=== PATIENT | female | born 1990 | race Caucasian/White ===

== ENCOUNTER 2020-04-21 18:05 | Inpatient (IN) | payer MEDICAID, SELFPAY ==
[~2020-04-21] VITALS: Ht 167.6 cm; Wt 126.6 kg
[2020-04-21 18:20] VITALS: BP 152/79
--- NOTE | 2020-04-21 18:23 | NUR ---
TO LOBBY A/W BED AMBULATORY
--- NOTE | 2020-04-21 19:30 | NUR ---
SEEN AND EXAMINED BY PA WITH ORDERS AND CARRIED OUT
[2020-04-21] MEDS ORDERED: DICYCLOMINE HCL LIQUID 20 MG, ALUMINUM HYD/MAG/SIMETHICONE 30 ML, LIDOCAINE VISCOUS 2% ... PO ONE ×3 (19:35)
[2020-04-21] MEDS ORDERED: KETOROLAC 30 MG/ML VIAL IM ONE (19:35)
[2020-04-21] MEDS ORDERED: DICYCLOMINE HCL LIQUID 10 MG/5 ML UDC ONE (20:11)
[2020-04-21] MEDS ORDERED: LIDOCAINE VISCOUS 2% 20 ML UDC ONE (20:11)
[2020-04-21] MEDS ORDERED: ALUMINUM HYD/MAG/SIMETHICONE 30 ML UDC ONE (20:11)
[2020-04-21 20:13] LABS: BASOPHILS # (AUTO) 0.1 K/uL (0.00-0.22); BASOPHILS % (AUTO) 0.5 % (0.0-2.0); EOSINOPHILS # (AUTO) 0.1 K/uL (0-0.4); EOSINOPHILS % (AUTO) 0.6 % (0.0-4.0); HEMOGLOBIN 14.2 g/dL (12.0-16.0); LYMPHOCYTES # (AUTO) 1.9 K/uL (2.5-16.5); LYMPHOCYTES % (AUTO) 13.4 % (20.5-51.1); MEAN CORPUSCULAR HEMOGLOBIN 29 pg (27-31); MEAN CORPUSCULAR HGB CONC 33 g/dL (33-37); MEAN CORPUSCULAR VOLUME 87.1 fL (80-94); MONOCYTES # (AUTO) 1.1 K/uL (0.8-1.0); MONOCYTES % (AUTO) 7.6 % (1.7-9.3); NEUTROPHILS % (AUTO) 77.9 % (42.2-75.2); PLATELET COUNT (AUTO) 316 K/uL (140-450); RED BLOOD CELL COUNT(AUTO) 4.94 MIL/uL (4.20-5.40); RED CELL DISTRIBUTION WIDTH 14.8 % (11.6-13.7); WHITE BLOOD COUNT (AUTO) 14.1 K/uL (4.8-10.8)
--- NOTE | 2020-04-21 20:20 | NUR ---
MEDICATED PER ERMDS ORDER, TOLERATED WELL.
[2020-04-21 20:30] LABS: ALBUMIN 3.8 g/dL (3.4-5.0); ANION GAP 11.7 (8-16); CREATININE 0.8 mg/dL (0.6-1.3); POTASSIUM 3.7 mmol/L (3.5-5.1); TOTAL BILIRUBIN 0.7 mg/dL (0.0-1.0)
[2020-04-21 21:48] LABS: APPEARANCE,URINE CLEAR (CLEAR); BILIRUBIN,URINE NEGATIVE (NEGATIVE); BLOOD, URINE NEGATIVE (NEGATIVE); COLOR,URINE YELLOW (YELLOW); LEUKOCYTE ESTERASE ,URINE NEGATIVE (NEGATIVE); NITRITE, URINE NEGATIVE (NEGATIVE); PH,URINE 5.5 (5.0-9.0); UGLUCOSE NEGATIVE (NEGATIVE)
[2020-04-21] MEDS ORDERED: PIPERACILLIN/TAZOBACTAM 3.375 GM in DEXTROSE 5% 50 ML IV ONE (22:15)
--- NOTE | 2020-04-22 01:00 | NUR ---
ALL RESULTS BACK AND NOTED BY ERMD AND FOR ADMISSION.
--- NOTE | 2020-04-22 01:09 | NUR ---
Patient will be admitted to care of DR CAYDEN FOREMAN. Admited to MS.DIAGNOSIS PANCREATITIS, CHOLECYSTITIS, CHOLEDUCOLITHIASIS.NO AVAILABLE ROOM OF NOW.
[2020-04-22] MEDS ORDERED: PIPERACILLIN/TAZOBACTAM 3.375 GM VIAL IV ONE ×4 (03:16→21:29)
[2020-04-22] MEDS ORDERED: DEXTROSE 5% 1,000 ML IV SCH (07:45)
[2020-04-22] MEDS: MORPHINE SULFATE 2 MG/ML SYR IVP PRN ×2 (08:14→21:38)
[2020-04-22] MEDS ORDERED: ONDANSETRON 4 MG/2 ML VIAL IM/IVP PRN (08:55)
[2020-04-22] MEDS ORDERED: DOCUSATE SODIUM 100 MG GELCAP PO PRN (08:55)
[2020-04-22] MEDS ORDERED: NACL 0.9% 1,000 ML IV SCH (08:55)
[2020-04-22] MEDS ORDERED: POTASSIUM CHLORIDE 10 MEQ TABER PO PRN (08:55)
[2020-04-22] MEDS ORDERED: guaiFENesin DM 200/20 MG-10 ML 10 ML UDC PO PRN (08:55)
[2020-04-22] MEDS ORDERED: ZOLPIDEM 5 MG TAB PO PRN (08:55)
[2020-04-22] MEDS ORDERED: ACETAMINOPHEN 325 MG TAB PO PRN (08:55)
--- NOTE | 2020-04-22 09:13 | NUR ---
PATIENT HAS BEEN SCREENED AND CATEGORIZED LOW NUTRITION RISK. PATIENT WILL BE SEEN WITHIN 7 DAYS OF ADMISSION. 04/28/[address]
[2020-04-22] MEDS: PANTOPRAZOLE 40 MG TABEC PO SCH (09:47)
[2020-04-22 10:36] LABS: BASOPHILS # (AUTO) 0.1 K/uL (0.00-0.22); BASOPHILS % (AUTO) 0.5 % (0.0-2.0); EOSINOPHILS # (AUTO) 0.1 K/uL (0-0.4); EOSINOPHILS % (AUTO) 0.4 % (0.0-4.0); HEMATOCRIT 41.6 % (36-48); HEMOGLOBIN 13.7 g/dL (12.0-16.0); LYMPHOCYTES # (AUTO) 1.4 K/uL (2.5-16.5); LYMPHOCYTES % (AUTO) 10.3 % (20.5-51.1); MEAN CORPUSCULAR HEMOGLOBIN 29 pg (27-31); MEAN CORPUSCULAR HGB CONC 33 g/dL (33-37); MEAN CORPUSCULAR VOLUME 86.8 fL (80-94); MONOCYTES # (AUTO) 1.1 K/uL (0.8-1.0); MONOCYTES % (AUTO) 7.7 % (1.7-9.3); NEUTROPHILS # (AUTO) 11.3 K/uL (1.8-7.7); NEUTROPHILS % (AUTO) 81.1 % (42.2-75.2); PLATELET COUNT (AUTO) 292 K/uL (140-450); RED CELL DISTRIBUTION WIDTH 14.8 % (11.6-13.7)
[2020-04-22 11:22] LABS: PROTHROMBIN TIME 9.7 secs (10.8-13.4)
--- NOTE | 2020-04-22 11:28 | NUR ---
SOCIAL WORK NOTE: Patient's Orientation Unable To Assess Information Provided By CHERRY KEITH - MOTHER Comments SW WAS UNABLE TO MEET PATIENT AT BEDSIDE. SW COMPLETED ASSESSMENT WITH PATIENT'S MOTHER. Logistics Tech, Realtionship and Phone Number CHERRY KELLEY [phone] Healthcare Power of Supervisor Cell Operation No Does Patient Have a POLST No Identifying Problems No Social Work Triggers Is A Social Work Consult Needed No Mandate Report Filed No Explanation Of Identifying Problems PATIENT IS A 30-YEAR-OLD FEMALE ADMITTED FOR PANCREATITIS. PATIENT HAS NO REPORTED PMHX. PATIENT'S MOTHER REPORTED NO HISTORY OF SUBSTANCE ABUSE OR MENTAL HEALTH. Admitted From Home Pre-Admission Level Of Functioning Status Independent/Ambulatory Prior Resources/Services Used In Last 12 Months No Prior Resources Used Prior DME No Prior DME Used Dialysis Comments N/A Living Situation Apartment Lives With Family Patient Had Caregiver No Home Support No Caregiver Issues Financial Issues No Known Financial Issue Referral To The Financial Counselor Needed No Factors/Needs No D/C Needs Identified Pt/Rep Participated In Discharge Plan Yes Patient/Family Agress With Discharge Plan Yes Discharge Plan Comments TENTATIVE DISCHARGE PLAN IS FOR PATIENT TO RETURN HOME. DC Plan Status Initiated
[2020-04-22 12:48] LABS: ANION GAP 13.6 (8-16); POTASSIUM 3.6 mmol/L (3.5-5.1)
[2020-04-22 12:51] LABS: CHOL/HDL RATIO 2.7 (1-4.5); FREE T4 (FREE THYROXINE) 1.46 ng/dL (0.76-1.46); MAGNESIUM 2.6 mg/dL (1.8-2.4); PHOSPHORUS 3.2 mg/dL (2.5-4.9); THYROID STIMULATING HORMONE 2.8 uIU/mL (0.34-3.74)
[2020-04-22] MEDS: PIPERACILLIN/TAZOBACTAM 3.375 GM in DEXTROSE 5% 50 ML IV SCH ×2 (13:38→21:32)
--- NOTE | 2020-04-22 16:54 | NUR ---
PT taken to Operating Room. report given to Rossy BARRERA.
[2020-04-22] MEDS ORDERED: BUPIVACAINE-MPF/EPI 0.25% 10 ML VIAL INJ ONE (17:12)
[2020-04-22] MEDS ORDERED: HYDROmorphone 1 MG/ML AMP IVP PRN ×2 (18:15→18:35)
[2020-04-22] MEDS ORDERED: ONDANSETRON 4 MG/2 ML VIAL IVP PRN (18:15)
[2020-04-22] MEDS ORDERED: diphenhydrAMINE 50 MG/ML VIAL IVP PRN (18:15)
[2020-04-22] MEDS ORDERED: HYDROcodone/APAP 5/325 MG 1 TAB TAB PO PRN (18:35)
[2020-04-22] MEDS: MEPERIDINE 25 MG/ML SYR IVP PRN ×2 (19:12→19:28)
--- NOTE | 2020-04-22 19:30 | NUR ---
RECEIVED BEDSIDE REPORT FROM [employer] CONSULTANT. PT IS AAOX4. RESPIRATIONS ARE EQUAL AND UNLABORED. SAT LOW 87% ON RA PT PUT ON 2L NC SAT 95%. LUNG SOUNDS ARE CLEAR. ABD IS ROUND, SOFT, BOWEL SOUNDS ACTIVE X4. LBM PER PT LAST NIGHT. DX A. CHOLECYSTITIS S/P LAP LUIS ANGEL WITH 4 SURGICAL INCISION CLOSED BY HEATHER HUITRON. INCISION ARE CLEAN NO DRAINAGE NOTED. IV ON LAC 20G. PT FROM HOME. ORIENTED TO ROOM,STAFF, CALL LIGHT. DOC DISCUSSED WITH PT. WILL CONTINUE TO MONITOR.
[2020-04-22 20:00] VITALS: BP 110/62
--- NOTE | 2020-04-22 21:37 | NUR ---
ADMISSION [facility] COMPLETE. MRSA SWAB OBTAINED AND SENT TO LAB. POC REVIEWED WITH PT. ENCOURAGE PT TO USE IS AND AMBULATE. PT VERBALIZED UNDERSTANDING. ALL NEEDS MET.
[2020-04-22] MEDS: LACTATED RINGERS 1,000 ML IV SCH (21:45)
--- NOTE | 2020-04-23 | NUR ---
PT IS SLEEPING COMFORTABLY IN BED WITH EYES CLOSED. CHEST RISE AND FALL NOTED. CALL LIGHT IS WITHIN REACH.
[2020-04-23] MEDS: LACTATED RINGERS 1,000 ML IV SCH (01:26)
[2020-04-23 04:00] VITALS: BP 100/67
--- NOTE | 2020-04-23 04:00 | NUR ---
VITAL SIGNS ARE WITHIN NORMAL LIMITS. SURGICAL INCISION WERE CLEAN WITH NS AND PAT DRY SINGEING TORCH OPERATOR. PT TOLERATED WELL. ALL NEEDS MET. CALL LIGHT IS WITHIN REACH. WILL CONTINUE TO MONITOR.
[2020-04-23] MEDS ORDERED: PIPERACILLIN/TAZOBACTAM 3.375 GM VIAL IV ONE (04:52)
[2020-04-23] MEDS: PIPERACILLIN/TAZOBACTAM 3.375 GM in DEXTROSE 5% 50 ML IV SCH ×2 (04:55→12:52)
[2020-04-23] MEDS: HYDROcodone/APAP 7.5/325 MG 1 TAB PO PRN ×2 (04:55→12:50)
--- NOTE | 2020-04-23 04:55 | NUR ---
ADMINISTERED NORCO PRN FOR ABD PAIN. PT TOLERATED WELL. ALL NEEDS MET. CALL LIGHT IS WITHIN REACH.
--- NOTE | 2020-04-23 06:00 | NUR ---
PT IS RESTING COMFORTABLY IN BED USING CELLPHONE. CALL LIGHT IS WITHIN REACH.
[2020-04-23 06:27] LABS: BASOPHILS % (AUTO) 0.1 % (0.0-2.0); HEMATOCRIT 36.3 % (36-48); HEMOGLOBIN 12.1 g/dL (12.0-16.0); LYMPHOCYTES % (AUTO) 7.2 % (20.5-51.1); MEAN CORPUSCULAR HEMOGLOBIN 29 pg (27-31); MEAN CORPUSCULAR HGB CONC 33 g/dL (33-37); MEAN CORPUSCULAR VOLUME 86.2 fL (80-94); MONOCYTES # (AUTO) 0.8 K/uL (0.8-1.0); MONOCYTES % (AUTO) 6.2 % (1.7-9.3); NEUTROPHILS # (AUTO) 11.5 K/uL (1.8-7.7); NEUTROPHILS % (AUTO) 86.5 % (42.2-75.2); PLATELET COUNT (AUTO) 290 K/uL (140-450); RED BLOOD CELL COUNT(AUTO) 4.21 MIL/uL (4.20-5.40); RED CELL DISTRIBUTION WIDTH 14.8 % (11.6-13.7); WHITE BLOOD COUNT (AUTO) 13.3 K/uL (4.8-10.8)
[2020-04-23 06:35] LABS: ANION GAP 12.6 (8-16); CARBON DIOXIDE 26.5 mmol/L (21-32); CREATININE 0.8 mg/dL (0.6-1.3); POTASSIUM 4.1 mmol/L (3.5-5.1)
--- NOTE | 2020-04-23 07:20 | NUR ---
BEDSIDE REPORT GIVEN PT ENDORSED IN STABLE CONDITION.
--- NOTE | 2020-04-23 08:03 | NUR ---
RECEIVED PATIENT IN BED RESTING COMFORTABLY, PRESENTS CALM AND COOPERATIVE. ABLE TO EXPRESS NEEDS. NO C/O PAIN OR DISCOMFORT. RESPIRATIONS ARE NON-LABORED. SKIN IS CLEAN, WARM AND DRY TO TOUCH. IV ACCESS IS PATENT, DRY AND INTACT. BED IS LOCKED IN LOWEST POSITION, CALL LIGHT IN REACH.
[2020-04-23 08:07] LABS: T4 (THYROXINE) 8.3 ug/dL (4.5-12.0)
[2020-04-23] MEDS: PANTOPRAZOLE 40 MG TABEC PO SCH (09:19)
--- NOTE | 2020-04-23 12:24 | NUR ---
PATIENT IN BED RESTING COMFORTABLY, PRESENTS CALM AND COOPERATIVE. ABLE TO EXPRESS NEEDS. NO C/O PAIN OR DISCOMFORT. RESPIRATIONS ARE NON-LABORED. SKIN IS CLEAN, WARM AND DRY TO TOUCH. IV ACCESS IS PATENT, DRY AND INTACT.BED IS LOCKED IN LOWEST POSITION, CALL LIGHT IN REACH.
--- NOTE | 2020-04-23 14:20 | NUR ---
PATIENT GIVEN DISCHARGE INSTRUCTIONS/PRESCRIPTIONS AND FOLLOW UP CARE. PATIENT VERBALIZES UNDERSTANDING. NO C/O PAIN OR DISCOMFORT. RESPIRATIONS ARE NON-LABORED. SKIN IS CLEAN, WARM AND DRY TO TOUCH. IV DISCONTINUED PATIENT ESCORTED TO VEHICLE TO AWAITING FAMILY. PATIENT IS DISCHARGE FROM CARE
== END 2020-04-23 14:15 | disposition home or self-care (01) | DRG 710 ==
LOC: MED 18:05 → MMU 04-22 01:09 → MTU 04-22 19:58
PROVIDERS: ADMIT Family Medicine; ATTEND Family Medicine
PROC: 0FT44ZZ Resection of Gallbladder, Percutaneous Endoscopic Approach (ICD-10-PCS; principal; 2020-04-22 15:50)
DX: A41.9 Sepsis, unspecified organism (principal); K82.1 Hydrops of gallbladder; Z68.42 Body mass index [BMI] 45.0-49.9, adult; K80.42 Calculus of bile duct with acute cholecystitis without obstruction; E66.01 Morbid (severe) obesity due to excess calories; E86.0 Dehydration; Z98.891 History of uterine scar from previous surgery; Z79.899 Other long term (current) drug therapy; K66.0 Peritoneal adhesions (postprocedural) (postinfection); Z20.828 Contact with and (suspected) exposure to other viral communicable diseases
CPT/HCPCS: 36415; 71045; 76705; 80048; 80053; 81003; 82150; 83036; 83605; 83690; 83735; 83880; 84100; 84436; 84439; 84443; 84479; 84484; 85025; 85610; 85730; 87040; 87081; 88304; 93005; 96365; 96372; 99285; J1885; J2175; J2270; J2543; J3490; J7060